=== PATIENT | female | born 1975 | race Caucasian/White ===

== ENCOUNTER 2022-11-30 14:56 | Emergency (ER) | payer OTHER, SELFPAY ==
[2022-11-30 15:07] VITALS: BP 118/63; PULSE 81; RESP 16; TEMP 37.2; O2SAT 99
--- NOTE | 2022-11-30 15:23 | ED.EAR ---
HPI - Ear Problem General Chief complaint: Ear Stated complaint: Ear and neck pain Time Seen by Provider: 11/30/22 15:28 Source: patient and RN notes reviewed Mode of arrival: ambulatory Limitations: no limitations History of Present Illness HPI Narrative: 47-year-old female presents with concern for left ear pain and neck pain. She reports it feels clogged and full. She denies nasal congestion, rhinorrhea, sore throat. She reports she did have some issues with a wisdom tooth on that side in the past. MD Complaint: ear pain Related Data Allergies Allergy/AdvReac Type Severity Reaction Status Date / Time codeine Allergy Unknown LUNGS Unverified 11/30/22 15:14 THROAT SWELL- CAN TAKE LORTAB SEE NOTE Review of Systems Review of Systems: CONSTITUTIONAL: Denies malaise, chills, sweats, or fever. EYES: Denies visual changes, redness, or discharge. ENT: Denies rhinorrhea, congestion, sinus pain, and sore throat. Reports left ear pain CARDIOVASCULAR: Denies chest pain, palpitations, or edema. RESPIRATORY: Denies cough. Denies dyspnea. GASTROINTESTINAL: Denies abdominal pain, nausea, vomiting, diarrhea SKIN: Denies rash or itching. MUSCULOSKELETAL: Denies myalgia. NEUROLOGIC: Denies headache. All systems reviewed & are unremarkable except as noted in HPI and below PMFSH Comments At time of signature, agree with nursing past medical, surgical, social and family history. There is no relevant family history pertinent to the presenting complaint Exam Narrative: GENERAL: Well-appearing, well-nourished, and in no acute distress. HEAD: Normocephalic EYES: PERRLA, conjunctivae clear ENT: Nares clear. Mucous membranes moist. TM pearly angel with dull light reflex bilaterally; left tragal tenderness with EAC edema, no drainage. Oropharynx not erythematous without lesions. Tonsils not enlarged and without exudate, no drooling, no hoarseness, no trismus, uvula midline. No gingival erythema, edema, no purulent drainage noted in the mouth NECK: Supple. No lymphadenopathy CHEST: Clear to auscultation, breath sounds equal. No wheezing, rhonchi, rales, or stridor. No respiratory distress, speaks in full sentences. HEART: Regular rate and rhythm. No murmur heard. SKIN: Warm, dry, no rash. NEURO: Alert and oriented x3. PSYCH: Normal mood and affect Course Course Emergency Course: Patient is aware of diagnosis, understands and agrees to treatment plan. Anticipatory guidance given. Patient agrees to follow-up as directed and is aware of reasons to seek care at the emergency department. Portions of this record may have been created with voice recognition software Level of Care: Express Care Visit Vital Signs Vital signs: Vital Signs Temperature 98.9 F 11/30/22 15:07 Pulse Rate 81 11/30/22 15:07 Respiratory Rate 16 11/30/22 15:07 Blood Pressure 118/63 11/30/22 15:07 Pulse Oximetry 99 11/30/22 15:07 Oxygen Delivery Room Air 11/30/22 15:07 Temperature 98.9 F 11/30/22 15:07 Pulse Rate 81 11/30/22 15:07 Respiratory Rate 16 11/30/22 15:07 Blood Pressure 118/63 11/30/22 15:07 Pulse Oximetry 99 11/30/22 15:07 Oxygen Delivery Room Air 11/30/22 15:07 Reviewed. Medical Decision Making MDM Narrative Medical decision making narrative: Differential diagnosis considered: Arias virus, strep pharyngitis, allergic rhinitis, upper respiratory tract infection, sinusitis, rhinosinusitis, nasopharyngitis. viral pharyngitis, otitis media, otitis externa, otitis effusion, cerumen impaction, foreign body. Exam findings show no acute concerns or changes; patient is non-toxic appearing and is in no distress. Patient is appropriate for outpatient treatment and follow-up. Vital Signs Vital Signs: Vital Signs Temperature 98.9 F 11/30/22 15:07 Pulse Rate 81 11/30/22 15:07 Respiratory Rate 16 11/30/22 15:07 Blood Pressure 118/63 11/30/22 15:07 Pulse Oximetry 99
== END 2022-11-30 15:39 | disposition home or self-care (01) ==
PROVIDERS: Emergency Provider Nurse Practitioner; PCP Family Medicine
DX: H60.92 Unspecified otitis externa, left ear (principal)
CPT/HCPCS: 99213; G0463